=== PATIENT | male | born 2000 | race Caucasian/White ===

== ENCOUNTER 2022-03-24 04:15 | Emergency (ER) | payer BC ==
[~2022-03-24] VITALS: Ht 182.9 cm; Wt 80.7 kg
[2022-03-24 04:29] VITALS: BP_SYST 11; BP_SYST 118; BP_DIAS 72
--- NOTE | 2022-03-24 04:40 | NUR ---
RT AT BEDSIDE
--- NOTE | 2022-03-24 04:40 | NUR ---
TO BED 11 AND PLACED ON BED SIDE MONITOR
[2022-03-24] MEDS ORDERED: methylPREDNISolone SS 125 MG/2 ML VIAL IM ONE (04:45)
[2022-03-24] MEDS ORDERED: ALBUTEROL SULFATE/IPRATROPIU 3 ML SOL IH ONE ×2 (04:45→05:05)
--- NOTE | 2022-03-24 04:55 | NUR ---
PER ED VERBAL ORDER PROVIDED SPACER AND EDUCATED PT
[2022-03-24] MEDS ORDERED: PRED20TA5 PO (05:22)
[2022-03-24] MEDS ORDERED: PRON INH (05:22)
[2022-03-24 06:16] VITALS: BP 112/85
== END 2022-03-24 06:20 | disposition home or self-care (01) ==
LOC: MED 04:15
DX: J45.901 Unspecified asthma with (acute) exacerbation (principal); J06.9 Acute upper respiratory infection, unspecified; Z79.899 Other long term (current) drug therapy
CPT/HCPCS: 96372; 99285; J2930; 94640